=== PATIENT | female | born 1965 | race Caucasian/White ===

== ENCOUNTER 2016-05-06 18:39 | Emergency (ER) | payer OTHER | END 2016-05-07 00:15 | disposition left against medical advice (07) | LOC: ER1 18:39 | DX: Z53.21 Procedure and treatment not carried out due to patient leaving prior to being seen by health care provider (principal) ==

== ENCOUNTER 2020-03-24 03:44 | Emergency (ER) | payer OTHER ==
[~2020-03-24 03:44] MED LIST: ADMELOG100 UNIT/1 SC; ASPIRIN EC325 MG PO; ASPIRIN EC81 MG PO; ATORVASTATIN CA20 MG PO; BASAGLAR K100 UNIT/1 SC; BASAGLAR K100 UNIT/1 SQ; BRILINTA 90 MG90 MG PO; CLOPIDOGREL75 MG PO; COLCHICINE 0.60.6 MG PO; CRESTOR 10 MG T10 MG PO; DICLOFENAC SODI25 MG PO; FUROSEMIDE40 MG PO; GABAPENTIN400 MG PO; HUMALOG 10100 UNITS/ SC; HUMALOG100 UNIT/1 SQ; KLONOPIN TAB 00.5 MG PO; LANTUS INS100 UTS/M1 SC; LEVAQUIN500 MG PO; LIPITOR TAB 2020 MG PO; LIPITOR80 MG PO; LISINOPRIL5 MG PO; LOPRESSOR 25 MG25 MG PO; LOPRESSOR50 MG PO; OXYGEN; PANTOPRAZOLE SO40 MG PO; PLAVIX 75 MG TA75 MG PO; PRAVACHOL20 MG PO; PRINIVIL5 MG PO; PROTONIX40 MG PO; VOLTAREN EC 7575 MG PO
[2020-03-24 04:09] LABS: RED BLOOD COUNT 3.67 M/UL (4.00-5.10)
[2020-03-24 04:38] LABS: BUN/CREATININE RATIO 18 (0-10)
[2020-03-24] MEDS ORDERED: PROAIR DIGIHAL90 MCG INH (06:41)
[2020-03-24] MEDS ORDERED: ZITHROMAX250 MG PO (06:41)
== END 2020-03-24 07:21 | disposition home or self-care (01) ==
LOC: ER1 03:44
PROVIDERS: Emergency Medicine
DX: U07.1 COVID-19 (principal); J12.82 Pneumonia due to coronavirus disease 2019; I11.9 Hypertensive heart disease without heart failure; E11.9 Type 2 diabetes mellitus without complications; Z86.73 Personal history of transient ischemic attack (TIA), and cerebral infarction without residual deficits
CPT/HCPCS: 71045; 80053; 82009; 83605; 84484; 85025; 87081; 87880; 93005; 99285; Q9967; U0002

== ENCOUNTER 2020-09-14 21:37 | Emergency (ER) | payer OTHER ==
[~2020-09-14 21:37] MED LIST changes: +PROAIR DIGIHAL90 MCG INH; +ZITHROMAX250 MG PO
[2020-09-14 23:17] LABS: HEMOGLOBIN 9.1 gm/dl (12.3-15.3); RED BLOOD COUNT 3.11 M/UL (4.00-5.10)
[2020-09-14 23:43] LABS: BUN/CREATININE RATIO 26 (0-10)
[2020-09-15 04:00] LABS: BODY FLUID SOURCE PLEURAL
[2020-09-15 04:29] LABS: MONONUCLEAR CELLS 37 %; POLYMORPHONUCLEAR 63 %
== END 2020-09-15 19:25 | disposition home or self-care (01) ==
LOC: ER1 21:37
PROVIDERS: Family Medicine; Physician Assistant
DX: R07.9 Chest pain, unspecified (principal); E78.5 Hyperlipidemia, unspecified; E11.9 Type 2 diabetes mellitus without complications; I10 Essential (primary) hypertension; Z20.822 Contact with and (suspected) exposure to COVID-19; Z95.1 Presence of aortocoronary bypass graft; Z90.710 Acquired absence of both cervix and uterus; Z88.5 Allergy status to narcotic agent; Z88.6 Allergy status to analgesic agent; Z88.8 Allergy status to other drugs, medicaments and biological substances
CPT/HCPCS: 32554; 71045; 80053; 82550; 82553; 83605; 83874; 83880; 84484; 85025; 85610; 85730; 87040; 87070; 87205; 89051; 93005; 96374; 96375; 99284; J1940; J2270; J2405; Q9967; U0002

== ENCOUNTER 2021-06-19 14:12 | Emergency (ER) | payer OTHER | END 2021-06-19 16:20 | disposition home or self-care (01) | LOC: ER1 14:12 | DX: S43.402A Unspecified sprain of left shoulder joint, initial encounter (principal); I51.9 Heart disease, unspecified; E11.9 Type 2 diabetes mellitus without complications; Z95.1 Presence of aortocoronary bypass graft; W01.0XXA Fall on same level from slipping, tripping and stumbling without subsequent striking against object, initial encounter | CPT/HCPCS: 73030; 73060; 73090; 99283 ==